=== PATIENT | female | born 1980 | race Two or more races ===

== ENCOUNTER 2017-03-15 13:46 | Outpatient (CLI) | payer OTHER ==
--- NOTE | 2017-03-16 09:41 | Diagnostic Imaging Report ---
Indication: COUGH Technique: 2 views of the chest Comparison: none Findings: Lungs are hyperinflated. Lungs and pleural spaces are clear. Heart size is normal. Impression: No acute process Hyperinflation, may indicate asthma. Correlate with clinical findings
== END 2017-03-15 15:46 | disposition home or self-care (01) ==
LOC: RAD 13:46
DX: R05 Cough (principal); R06.02 Shortness of breath
CPT/HCPCS: 71020